=== PATIENT | female | born 1995 | race Caucasian/White ===

== ENCOUNTER 2020-05-07 09:11 | Emergency (ER) | payer MEDICAID, SELFPAY ==
[2020-05-07 09:12] VITALS: BP 125/94; PULSE 83; RESP 16; TEMP 36.2; O2SAT 100; BMI 27.4
--- NOTE | 2020-05-07 09:32 | US_ITS ---
STUDY: FIRST TRIMESTER OBSTETRICAL ULTRASOUND REASON FOR EXAM: Female, 25 years old Threatened miscarriage -- HCG 31 BLEEDING LMP: 03/30/2020. TECHNIQUE: Transvaginal TECHNICAL QUALITY: Adequate. PRIOR ULTRASOUND: None. FINDINGS: There is no demonstrated intrauterine gestational sac. There is no demonstrated yolk sac. The placenta is non-visualized. There is no demonstrated embryo ( pole). The estimated gestation age (EGA) by LMP is 5 weeks, 3 days. The estimated date of delivery (DYLON) by LMP is 01/04/2021. The uterus measures 7.6 cm x 4.4 cm x 3.8 cm the endometrium is thickened and measures 15.2 mm.. There is no demonstrated uterine fibroid. The cervix is closed. There is evidence of a nabothian cyst. The right ovary measures 3.3 cm x 2.1 cm x 1.9 cm. There is no right ovarian cyst. There is no visualized right adnexal mass or complex lesion. The left ovary measures 3.5 cm x 2.7 cm x 1.6 cm.. There is no left ovarian cyst. There is no visualized left adnexal mass or complex lesion. There is a mild amount of fluid in the cul de sac. US/Transvaginal w/Preg US IMPRESSION: No evidence of intrauterine gestational sac or embryo. The endometrium is thickened measuring 15.2 mm. Free fluid is seen in the pelvis. Follow-up with serial beta hCGs recommended. Electronically Signed: Kaleb Krueger MD at 11:40 EDT , Service support ,
--- NOTE | 2020-05-07 09:34 | ED.VISSUMM ---
- ER Visit Summary Date of Service: 05/07/20 Chief Complaint: Vaginal bleeding and History of Present Illness: The patient is a 25 F who presents with vaginal bleeding that began today. Patient also started having some cramping today. Patient states she had some spotting over the last couple days but today she started having more bleeding and passing clots. Patient also admits to some intermittent lower abdominal cramping that last approximate 1 to 2 minutes. Patient describes it as stabbing. Patient states it is over the suprapubic area. Patient states nothing makes it better or worse. Patient does admit to some urinary frequency but states she has been drinking lots of water. Patient denies any dysuria. Patient states her last menstrual period was 03/30/2020. Patient states she has taken multiple home tests which have been positive. Patient has not seen her primary care physician or [facility] [employer] for this . Patient is 2 para 0 with 1 elective . Physical Examination: Vital signs are stable. Patient is afebrile. Patient is in no acute distress. Oral mucosa is pink and moist. Neck is supple. Trachea is midline. There is no JVD. Heart was regular rate and rhythm. Lungs are clear and equal bilaterally. Abdomen is soft. Bowel sounds are normal. There is some suprapubic tenderness. There is no rebound or guarding noted. Extremities are intact. There is no calf tenderness or edema. Cranial nerves II through XII are intact. There are no focal motor or sensory deficits. Test Results: BC and basic metabolic profile were obtained and were within normal limits. Urinalysis shows occult blood of 250. There is no evidence of urinary tract infection. Quantitative hCG was low at 31. Pelvic ultrasound was obtained. There is no evidence of intrauterine gestational sac or embryo. The endometrium is thickened. There are no adnexal masses or complex lesions noted. There are no ovarian cysts noted. This was interpreted by the radiologist and reviewed by myself. Emergency Department Course and Treatment: Patient was advised of her findings. Patient was instructed to follow-up with her primary care physician in 3 to 5 days. Patient understood and was agreeable with the plan. All questions were answered. Disposition: Discharge home Impression: 1. Spontaneous This note was generated with Mark43ation software. It may contain incorrect words, spelling, and punctuation that were not noted in review of the chart prior to signing ED Disposition - Plan for ED Patient: Disposition: Home or Assisted Living Diagnosis: Spontaneous Instructions: ED MISCARRIAGE Completed Referrals: NOT,DEFINED [NON-STAFF] - 3-5 Days
[2020-05-07 09:55] LABS: Absolute Lymphocyte Count 1.22 X10^3/uL (0.83-4.51); Absolute Neutrophil Count 7.2 X10^3/uL (2.0-7.7); Basophil# 0.04 X10^3/uL; Basophil% 0.4 % (0-1); Eosinophil# 0.12 X10^3/uL; Eosinophils% 1.3 % (0-5); Hematocrit 38.6 % (37-47); Hemoglobin 12.8 g/dL (12.0-15.0); Lymphocyte # 1.22 X10^3/ul (4.0); Lymphocyte % 13.5 % (19-41); Mean Corp Hgb Conc 33.2 g/dL (32-36); Mean Corpuscular Hgb 30.8 pg (27.0-32.0); Mean Corpuscular Volume 92.8 fL (81-99); Mean Platelet Vol. 9.9 fl (6.2-12.0); Monocyte# 0.48 X10^3/uL; Monocyte% 5.3 % (0-10); NRBC Flagged by Analyzer 0 % (0-5); Neutrophil # 7.16 X10^3/uL (2.7-7.7); Neutrophil % 79.1 % (47-70); Platelet Count 316 K/mm3 (150-450); RBC Distribution Width CV 12.2 % (11.6-14.6); RBC Distribution Width SD 42.1 fl (35.1-43.9); Red Blood Count 4.16 M/mm3 (4.2-5.4); White Blood Count 9.1 K/mm3 (4.4-11.0)
[2020-05-07 09:56] LABS: Bacteria 0 SEEN /hpf (None Seen); Mucous, Urine 0 SEEN /hpf (<or=2+); Squamous Epithelial Cells - UA 0 SEEN /hpf (5-10); White Blood Cells 0 SEEN /hpf (0-5)
[2020-05-07 09:58] LABS: Color, Urine Yellow (Yellow); Glucose, Dipstick Normal (Normal); Ketone-Dipstick Negative (Negative); Leukocyte Esterase-Dipstick 25 /ul (Negative); Nitrite-Dipstick Negative (Negative); Occult Blood-Urine 250 /ul (Negative); Protein-Dipstick Negative (Negative); Urine Bilirubin Dipstick Negative (Negative); Urine Clarity Clear (Clear); Urine Urobilinogen Normal (Normal)
[2020-05-07 10:04] LABS: Transitional Epithelial - Ur 5-10 SEEN /hpf (0-5)
[2020-05-07 10:05] LABS: Red Blood Cells-Urine > 100 SEEN /hpf (0-5)
[2020-05-07 10:23] LABS: Anion Gap 5 (5-15); BUN 9 mg/dL (7-18); BUN/Creat Ratio 11.7 RATIO (10-20); Calcium,Total 9.2 mg/dL (8.5-10.1); Chloride 108 mmol/L (98-107); Creatinine, Serum 0.77 mg/dL (0.55-1.02); EST Glomerular Filtration Rate 96 mL/min (>60); Est Glom Filt Rate - Afr Amer 116 mL/min (>60); Estimated Creatinine Clearance 94.77 ml/min; Glucose 105 mg/dL (74-106); Potassium 3.8 mmol/L (3.5-5.1); Sodium Level 140 mmol/L (136-145)
[2020-05-07 10:27] LABS: hCG Titer Quant., Serum 31 mIU/mL (1-3)
--- NOTE | 2020-05-07 12:02 | CM.ED ---
Social Work Consult: No PCP Referral Source: Self referral due to noting No PCP for patient. Met with patient in room. Introduced self and social contact worker role. Patient agreeable to speak with this social contact worker. Patient reports to have just found out I had a miscarriage. Active support and listening provided. Patient with pleasant and engaged affect. Patient reports to have support from the community/family/friends. Patient reports no concerns on returning to the community. This social contact worker broached topic of No PCP for patient, patient reports to be aware of resources and declines this social contact worker providing patient with list of PCP's or setting up appointment for patient. Patient reports to also be aware of OBGYNS in the area that accept patient insurance. Support provided. Fransisco Davila MSW, AGUSTIN
[2020-05-07 12:17] VITALS: BP 123/77; PULSE 82; RESP 16; O2SAT 99
== END 2020-05-07 12:18 | disposition home or self-care (01) ==
PROVIDERS: Emergency Provider Emergency Medicine
DX: O03.9 Complete or unspecified spontaneous abortion without complication (principal)
CPT/HCPCS: 76817; 80048; 81001; 84702; 85025; 99283; A4216

== ENCOUNTER 2020-11-01 14:52 | Emergency (ER) | payer MEDICAID, SELFPAY ==
[2020-11-01 14:52] VITALS: BP 112/96; PULSE 94; RESP 16; TEMP 36.6; O2SAT 100; BMI 26.9
--- NOTE | 2020-11-01 16:03 | US_ITS ---
HISTORY: bleeding EXAMINATION: US OB Transvaginal TECHNIQUE: Transvaginal (for optimal evaluation of the adnexa) pelvic ultrasound was performed. Grayscale, spectral waveform, and color flow Doppler evaluation of the adnexa. COMPARISON: None LMP: 09/20/20 Beta-hC,212 FINDINGS: UTERUS: Normal in size. No focal myometrial lesion. RIGHT OVARY: Normal in size and structure. LEFT OVARY: Normal in size, anechoic cyst measures up to 1.7 cm. FREE FLUID: None. INTRAUTERINE GESTATIONAL SAC(s): Twin. Mean sac diameter A 1.26 cm, corresponding 6 weeks 0 days EGA; mean sac diameter B 1.03 cm corresponding 5 weeks 5 days EGA. TWIN A: YOLK SAC: identified POLE: identified CRL 0.30 cm. ESTIMATED GESTATION AGE: 6 weeks 1 day. HEART MOTION: 97 bpm. PLACENTA: Not visualized due to age. SUBCHORIONIC HEMORRHAGE: None. AMNIOTIC FLUID: Qualitatively normal. TWIN B: YOLK SAC: Identified POLE: Not identified HEART MOTION: Not detected. Placenta not identified due to age. No subchorionic hemorrhage. Amniotic fluid volume qualitatively normal. IMPRESSION: Twin gestations with identification of live IUP in gestational sac A, EGA 6 weeks 1 day with DYLON 06/27/21. No pole identified in gestational sac B. Findings indicate IUP of unknown viability. In the hemodynamically stable patient, short-term sonographic follow-up in combination with serial beta hCG determination is recommended until definitive diagnosis is established. at 1924 Reported and signed by: Nitin Robin MD Electronically Signed: Nitin Robin MD at 19:22 EDT Tel , Service support , HISTORY: bleeding EXAMINATION: US OB Transvaginal TECHNIQUE: Transvaginal (for optimal evaluation of the adnexa) pelvic ultrasound was performed. Grayscale, spectral waveform, and color flow Doppler evaluation of the adnexa. COMPARISON: None LMP: 09/20/20 Beta-hC,212 FINDINGS: UTERUS: Normal in size. No focal myometrial lesion. RIGHT OVARY: Normal in size and structure. LEFT OVARY: Normal in size, anechoic cyst measures up to 1.7 cm. FREE FLUID: None. INTRAUTERINE GESTATIONAL SAC(s): Twin. Mean sac diameter A 1.26 cm, corresponding 6 weeks 0 days EGA; mean sac diameter B 1.03 cm corresponding 5 weeks 5 days EGA. TWIN A: YOLK SAC: identified POLE: identified CRL 0.30 cm. ESTIMATED GESTATION AGE: 6 weeks 1 day. HEART MOTION: 97 bpm. PLACENTA: Not visualized due to age. SUBCHORIONIC HEMORRHAGE: None. AMNIOTIC FLUID: Qualitatively normal. TWIN B: YOLK SAC: Identified POLE: Not identified HEART MOTION: Not detected. Placenta not identified due to age. No subchorionic hemorrhage. Amniotic fluid volume qualitatively normal. US/Transvaginal w/Preg US IMPRESSION: Twin gestations with identification of live IUP in gestational sac A, EGA 6 weeks 1 day with DYLON 06/27/21. No pole identified in gestational sac B. Findings indicate IUP of unknown viability. In the hemodynamically stable patient, short-term sonographic follow-up in combination with serial beta hCG determination is recommended until definitive diagnosis is established. at 1924 Reported and signed by: Nitin Robin MD Electronically Signed: Nitin Robin MD at 19:23 EDT Tel , Service support ,
--- NOTE | 2020-11-01 16:03 | ED.VIS.FEGU ---
HPI HPI - Female History of Present Illness Chief Complaint: Vag Bld, Preg Informant: patient Narrative Narrative: Patient is a G3, P0 female. She had an at 17. She had a miscarriage early on of the this April. Her last menstrual cycle was approximately the first few days in September. She just [facility] a [facility]. They did exam and ultrasound and were suspicious that she may be with twins. Today she started with some very small amount of blood when she wipes. Its not even every time that she wipes. She has no urinary symptoms. She really has no pain. Nothing really makes her better or worse. She was also told with ultrasound recently that she had an ovarian cyst. This would be expected early on in . PFSH PFSH Home Medications [id number] [] 1 tab PO DAILY 11/01/20 [History Last Taken Unknown] Allergy/AdvReac Type Severity Reaction Status Date / Time Sulfa (Sulfonamide Allergy Rash Verified 11/01/20 14:56 Antibiotics) Surgical History Hx of appendectomy Social History Smoking Status: Former smoker ROS ROS ED Constitutional Constitutional ED: Denies fever(s) or subjective ENT ENT ED: Denies rhinorrhea or sore throat Cardiovascular Cardiovascular: Denies chest pain or palpitations Respiratory/Chest Respiratory/Chest: Denies dyspnea Gastrointestinal Gastrointestinal: Denies abdominal pain, constipation, diarrhea, melena, nausea or vomiting Genitourinary Genitourinary ED: Reports other Details: Patient really has no urinary symptoms. She does have small amount of blood after wiping but does not think this is in the urine. ; Denies dysuria, hematuria or urinary frequency Musculoskeletal Musculoskeletal: Denies myalgias Integumentary Denies rash Neurologic Neurologic: Denies headache(s), paresthesias or weakness Endocrine Endocrinology: Denies polydipsia or polyuria Hematologic/Lymphatic Hematologic/Lymphatic: Denies easy bleeding or easy bruising EXAM Physical Exam Const Vital Signs: 11/01/20 14:52 Temperature 97.9 F Temperature Source Oral Pulse Rate 94 Respiratory Rate 16 Blood Pressure 112/96 H Blood Pressure Mean 101 Pulse Ox 100 Oxygen Delivery Method Room Air Positive well nourished and well developed General Appearance ED: well developed and NAD HEENT Reports moist mucous membranes Negative for trauma Eyes General Eye ED: Negative for pale conjunctiva Chest Wall inspection of chest normal Resp normal respiratory effort and clear to auscultation bilaterally Cardio regular rate and regular rhythm GI normal to inspection, nondistended, normoactive bowel sounds, soft to palpation and non-tender GI Narrative: No tenderness at all to palpation of abdomen. no CVA tenderness Narrative: No CVA tenderness on either side. Back/Spine no CVA tenderness Extremity normal to inspection General Extremety ED: Negative for edema General Extremity: Negative for edema Neuro oriented x3 Sensorium / Orientation: alert Psych mental status grossly normal Skin no rashes or lesions noted MDM MDM MDM Narrative Medical decision making narrative: We discussed options of work-up. I have a single image from an ultrasound 2 days ago. This does appear to be potential for twin intrauterine gestation. However I would like to have a formal ultrasound. Patient did agree to this. She did just have an exam 2 days ago. We will also check urine. I will check her quantitative hCG for following. Her diaphoretic we will also check ABO Rh. I originally ordered the ABO Rh. Then I found that she is O+ in the computer so this was canceled. Quantitative hCG is 14,212. White count is minimally elevated consistent with mild leukocytosis of . Hemoglobin is stable. Urine shows no sign of acute infection. There are some leukocyte Estrace but 0-5 white cells and no symptoms of UTI. Patient is rechecked. She is comfortable. Her ultrasound showed twin gestational sacs but only one pole. This was explained to the patient. She states she would just like to follow-up with her OB physician. She is making an on appointment hopefully for this week. We discussed reasons to return that would include worsening bleeding, lightheadedness, development of pain or other concerns. At this point, there is no indication of ectopic. Lab Data Attestation: I reviewed the patient's lab results. Labs: Laboratory Results - last 24 hr 11/01/20 11/01/20 11/01/20 15:25 16:55 16:55 WBC 12.2 H RBC 4.07 L Hgb 12.1 Hct 36.7 L MCV 90.2 MCH 29.7 MCHC 33.0 RDW Std Deviation 39.6 RDW Coeff of Greg 12.0 Plt Count 317 MPV 9.8 Immature Gran % (Auto) 0.400 Neut % (Auto) 80.1 H Lymph % (Auto) 13.1 L Sharkey % (Auto) 5.1 Eos % (Auto) 1.1 Baso % (Auto) 0.2 Absolute Neuts (auto) 9.8 H Absolute Lymphs (auto) 1.60 Nucleated RBC % 0 HCG, Quant 17707 H Urine Color Yellow Urine Clarity Clear Urine pH 7.0 Ur Specific [place] 1.010 Urine Protein Negative Urine Glucose (UA) Normal Urine Ketones Negative Urine Occult Blood 150 H Urine Nitrite Negative Urine Bilirubin Negative Urine Urobilinogen Normal Ur Leukocyte Esterase 100 H Urine RBC 0 SEEN Urine WBC 0-5 SEEN Ur Squamous Epith Cells 0-5 SEEN Urine Bacteria RARE Urine Mucus 0 SEEN Radiography Diagnostic Testing: Radiology Impression Obstetrics Ultrasound 11/01/20 16:03 IMPRESSION: Twin gestations with identification of live IUP in gestational sac A, EGA 6 weeks 1 day with DYLON 06/27/21. No pole identified in gestational sac B. Findings indicate IUP of unknown viability. In the hemodynamically stable patient, short-term sonographic follow-up in combination with serial beta hCG determination is recommended until definitive diagnosis is established. at 1924 Reported and signed by: Nitin Robin MD Electronically Signed: Nitin Robin MD at 19:23 EDT Tel , Service support , Discharge Plan Triage Chief Complaint: Vag Bld, Preg ED Provider: Jose Padilla Dx/Rx/DC Orders Clinical Impression: First trimester bleeding, Twin gestation in first trimester Instructions: ED Possible Miscarriage ... Prescriptions: No Action 1 mg Tablet 1 tab PO DAILY RF: 0 Primary Care Provider: Care Physician,No Primary Referrals: Care Physician,No Primary [Primary Care Provider] - Activity Restrictions/Additional Instructions: Follow-up with your OB physician as planned. Disposition Disposition: Home, Self Care
[2020-11-01 16:51] LABS: Mucous, Urine 0 SEEN /hpf (<or=2+); Red Blood Cells-Urine 0 SEEN /hpf (0-5)
[2020-11-01 16:55] LABS: Color, Urine Yellow (Yellow); Glucose, Dipstick Normal (Normal); Ketone-Dipstick Negative (Negative); Leukocyte Esterase-Dipstick 100 /ul (Negative); Nitrite-Dipstick Negative (Negative); Occult Blood-Urine 150 /ul (Negative); Protein-Dipstick Negative (Negative); Urine Bilirubin Dipstick Negative (Negative); Urine Clarity Clear (Clear); Urine Urobilinogen Normal (Normal)
[2020-11-01 17:10] LABS: Absolute Neutrophil Count 9.8 X10^3/uL (2.0-7.7); Basophil# 0.03 X10^3/uL; Basophil% 0.2 % (0-1); Eosinophil# 0.14 X10^3/uL; Eosinophils% 1.1 % (0-5); Hematocrit 36.7 % (37-47); Hemoglobin 12.1 g/dL (12.0-15.0); Lymphocyte % 13.1 % (19-41); Mean Corpuscular Hgb 29.7 pg (27.0-32.0); Mean Corpuscular Volume 90.2 fL (81-99); Mean Platelet Vol. 9.8 fl (6.2-12.0); Monocyte# 0.62 X10^3/uL; Monocyte% 5.1 % (0-10); NRBC Flagged by Analyzer 0 % (0-5); Neutrophil # 9.76 X10^3/uL (2.7-7.7); Neutrophil % 80.1 % (47-70); Platelet Count 317 K/mm3 (150-450); RBC Distribution Width SD 39.6 fl (35.1-43.9); Red Blood Count 4.07 M/mm3 (4.2-5.4); White Blood Count 12.2 K/mm3 (4.4-11.0)
[2020-11-01 17:17] LABS: Bacteria RARE /hpf (None Seen); Squamous Epithelial Cells - UA 0-5 SEEN /hpf (5-10); White Blood Cells 0-5 SEEN /hpf (0-5)
[2020-11-01 17:49] LABS: hCG Titer Quant., Serum 14212 mIU/mL (1-3)
[2020-11-01 20:18] VITALS: BP 108/68; PULSE 80; RESP 12; O2SAT 95
== END 2020-11-01 20:18 | disposition home or self-care (01) ==
PROVIDERS: Emergency Provider Emergency Medicine
DX: O20.9 Hemorrhage in early pregnancy, unspecified (principal); O30.001 Twin pregnancy, unspecified number of placenta and unspecified number of amniotic sacs, first trimester; Z87.891 Personal history of nicotine dependence; Z3A.01 Less than 8 weeks gestation of pregnancy
CPT/HCPCS: 76817; 81001; 84702; 85025; 99282

== ENCOUNTER 2020-11-19 18:43 | Emergency (ER) | payer MEDICAID, SELFPAY ==
[2020-11-19 18:44] VITALS: BP 107/70; PULSE 103; RESP 16; TEMP 36.7; O2SAT 100; BMI 28.0
--- NOTE | 2020-11-19 19:55 | US_ITS ---
STUDY: FIRST TRIMESTER OBSTETRICAL ULTRASOUND REASON FOR EXAM: Female, 25 years old. Vaginal bleeding. TECHNIQUE: Transvaginal US was obtained to better visualized the ovaries. TECHNICAL QUALITY: Adequate. PRIOR ULTRASOUND: 11.01.20 FINDINGS: There are two demonstrated intrauterine gestational sacs. The amniotic membrane cannot be visualized. The estimated gestation age (EGA) by LMP is 8 weeks, 6 days. The estimated date of delivery (DYLON) by LMP is 5... BABY A The mean sac diameter (MSD) measure 38mm, indicating an estimated gestational age (EGA) of 9 weeks, 1 days. There is a visualized yolk sac. The yolk sac measures 4.2 mm. There is visualization of an embryo. The crown-rump length (CRL) measures 20mm, indicating an estimated gestational age (EGA) of 8 weeks, 2 days. The estimated gestation age (EGA) by US is 8 weeks, 5 days. The estimated date of delivery (DYLON) by US is 5.09.10. There is demonstrated cardiac activity with a heart rate 166 bpm. BABY B The mean sac diameter (MSD) measure 29mm, indicating an estimated gestational age (EGA) of 8 weeks, 0 days. There is a visualized yolk sac. The yolk sac measures 3.6mm. There is visualization of an embryo. The crown-rump length (CRL) measures 19mm, indicating an estimated gestational age (EGA) of 8 weeks, 2 days. The estimated gestation age (EGA) by US is 8 weeks, 1 days. The estimated date of delivery (DYLON) by US is 5... There is demonstrated cardiac activity with a heart rate 174 bpm. US/Transvaginal w/Preg US IMPRESSION: Normal intrauterine first trimester FETUS A:There is demonstrated cardiac activity with a heart rate 166 bpm. The estimated gestation age (EGA) by US is 8 weeks, 5 days. The estimated date of delivery (DYLON) by US is 5..22. FETUS B: There is demonstrated cardiac activity with a heart rate 174 bpm. The estimated gestation age (EGA) by US is 8 weeks, 1 days. The estimated date of delivery (DYLON) by US is 5.11.22. The estimated gestation age (EGA) by LMP is 8 weeks, 6 days. The estimated date of delivery (DYLON) by LMP is 5.6.22. Electronically Signed: Homer Amaro MD at 21:35 EDT , Service support ,
--- NOTE | 2020-11-19 19:57 | EDS_ITS ---
HPI HPI - Female History of Present Illness Chief Complaint: Vag Bld, Preg Informant: patient Narrative Narrative: Presents for evaluation recurrent vaginal bleeding small clots a day after lifting cardiac. Denies trauma. G2, P0 8 weeks 5-day twin gestational diagnosed 18 days ago by ultrasound when she came for vaginal bleeding. States symptoms the bleeding subsided then. Recurred today. She has an appointment with OB tomorrow. She has been taking vitamins. No urinary symptoms. Denies alcohol tobacco or illicit drug use. States there was some cramping with bleeding. Records notes she is O+ blood type. Prior similar symptoms: Yes PFSH PFSH Home Medications [id number] [] 1 tab PO DAILY 11/01/20 [History Last Taken Unknown] Allergy/AdvReac Type Severity Reaction Status Date / Time Sulfa (Sulfonamide Allergy Rash Verified 11/19/20 18:47 Antibiotics) Surgical History Hx of appendectomy Social History Smoking Status: Former smoker ROS ROS ED Constitutional Constitutional ED: Denies chills, fever(s) or sweats Eyes Eyes: Denies change in vision ENT ENT ED: Denies dysphagia or sore throat Cardiovascular Cardiovascular: Denies chest pain, leg edema, palpitations or racing heartbeat Respiratory/Chest Respiratory/Chest: Denies cough, dyspnea or dyspnea on exertion Gastrointestinal Gastrointestinal: Denies abdominal pain, diarrhea, nausea or vomiting Genitourinary Genitourinary ED: Reports other Details: Vaginal bleeding ; Denies dysuria, hematuria or urinary frequency Musculoskeletal Musculoskeletal: Denies back pain, extremity pain or neck pain Integumentary Denies rash or wounds Neurologic Neurologic: Denies headache(s), paresthesias or weakness EXAM Physical Exam Const Vital Signs: 11/19/20 18:44 Temperature 98.1 F Temperature Source Temporal Pulse Rate 103 H Respiratory Rate 16 Blood Pressure 107/70 Blood Pressure Mean 82 Pulse Ox 100 Oxygen Delivery Method Room Air Positive well nourished and well developed General Appearance ED: well developed and NAD HEENT Reports moist mucous membranes normocephalic and atraumatic Eyes PERRL, EOMs intact bilaterally and conjunctivae normal General Eye ED: Yes normal appearance of both eyes Neck no lymphadenopathy and supple General: Negative for tenderness Chest Wall Chest: Negative for tenderness Resp normal respiratory effort and normal air movement Effort and Inspection: symmetric chest movement; Negative for respiratory distress Cardio regular rate, regular rhythm and no murmurs Peripheral Pulses: pulses 2+ throughout GI normal to inspection, nondistended, normoactive bowel sounds and non-tender Palpation: Negative for guarding or rebound tenderness present Back/Spine no CVA tenderness and no thoracic nor lumbar tenderness Extremity normal to inspection General Extremety ED: Negative for edema or tenderness General Extremity: Negative for edema Neuro oriented x3 and no sensory deficits noted Sensorium / Orientation: awake and alert Skin no rashes or lesions noted and no wounds MDM MDM MDM Narrative Medical decision making narrative: hCG quant 92,000, urine noted slight blood likely from her vaginal bleeding. No infection. Ultrasound positive for twin gestation of pregnancies with heart tones. Patient O+ from records. Discussed threatened miscarriage with the patient for evaluation. She will keep her OB appointment this coming Monday. All questions answered. Lab Data Attestation: I reviewed the patient's lab results. Labs: Laboratory Results - last 24 hr 11/19/20 11/19/20 19:30 20:22 HCG, Quant 35780 H Urine Color Yellow Urine Clarity Sl. Cloudy Urine pH 6.0 Ur Specific [place] 1.020 Urine Protein Negative Urine Glucose (UA) Normal Urine Ketones Negative Urine Occult Blood 150 H Urine Nitrite Negative Urine Bilirubin Negative Urine Urobilinogen Normal Ur Leukocyte Esterase Negative Urine RBC 10-25 SEEN Urine WBC 0 SEEN Ur Squamous Epith Cells 0-5 SEEN Urine Bacteria 0 SEEN Urine Mucus 0 SEEN Radiography Diagnostic Testing: Radiology Impression Obstetrics Ultrasound 11/19/20 19:55 IMPRESSION: Normal intrauterine first trimester FETUS A:There is demonstrated cardiac activity with a heart rate 166 bpm. The estimated gestation age (EGA) by US is 8 weeks, 5 days. The estimated date of delivery (DYLON) by US is 5.7.22. FETUS B: There is demonstrated cardiac activity with a heart rate 174 bpm. The estimated gestation age (EGA) by US is 8 weeks, 1 days. The estimated date of delivery (DYLON) by US is 5.11.22. The estimated gestation age (EGA) by LMP is 8 weeks, 6 days. The estimated date of delivery (DYLON) by LMP is 5.6.22. Electronically Signed: Homer Amaro MD at 21:35 EDT , Service support , Discharge Plan Triage Chief Complaint: Vag Bld, Preg ED Provider: Arben Jackson Dx/Rx/DC Orders Clinical Impression: Threatened miscarriage in early , Twin Instructions: ED Possible Miscarriage ... Prescriptions: No Action 1 mg Tablet 1 tab PO DAILY RF: 0 Primary Care Provider: Ann Petersen Referrals: Ann Petersen MD [Primary Care Provider] - 3-5 Days Disposition Disposition: Home, Self Care Discharge Date/Time: 11/19/20 22:08
[2020-11-19 21:10] LABS: Bacteria 0 SEEN /hpf (None Seen); Mucous, Urine 0 SEEN /hpf (<or=2+); White Blood Cells 0 SEEN /hpf (0-5)
[2020-11-19 21:23] LABS: Color, Urine Yellow (Yellow); Glucose, Dipstick Normal (Normal); Ketone-Dipstick Negative (Negative); Leukocyte Esterase-Dipstick Negative /ul (Negative); Nitrite-Dipstick Negative (Negative); Occult Blood-Urine 150 /ul (Negative); Protein-Dipstick Negative (Negative); Urine Bilirubin Dipstick Negative (Negative); Urine Clarity Sl. Cloudy (Clear); Urine Urobilinogen Normal (Normal)
[2020-11-19 21:50] LABS: Red Blood Cells-Urine 10-25 SEEN /hpf (0-5); Squamous Epithelial Cells - UA 0-5 SEEN /hpf (5-10)
== END 2020-11-19 22:08 | disposition home or self-care (01) ==
PROVIDERS: Emergency Provider Emergency Medicine; PCP Obstetrics & Gynecology
DX: O20.0 Threatened abortion (principal); O30.001 Twin pregnancy, unspecified number of placenta and unspecified number of amniotic sacs, first trimester; Z3A.08 8 weeks gestation of pregnancy; Z87.891 Personal history of nicotine dependence
CPT/HCPCS: 76817; 81001; 84702; 99282

== ENCOUNTER 2021-04-14 08:46 | Emergency (ER) | payer MEDICAID, SELFPAY ==
[2021-04-14 08:49] VITALS: BP 116/97; PULSE 116; RESP 20; TEMP 36.7; O2SAT 97; BMI 32.2
--- NOTE | 2021-04-14 09:03 | EX.ED.DYSGE1 ---
HPI History of Present Illness Chief Complaint: Nausea/Vomiting/Diarrhea Informant: patient Narrative Narrative: 26-year-old female presenting to the emergency department chief complaint of vomiting diarrhea. She states that yesterday she had a quesadilla burger from [employer] for lunch and her friend ate the same thing. She states that when she got home she ate the other half of the burger and developed some heartburn. Later during the night she developed vomiting every hour. She is also experienced 1 episode of diarrhea. She notes cramping in her upper abdomen prior to vomiting. She is currently with twins G3, P0 Ab2, who sees Dr. Mccoy. She states her has done very well so far. She denies any recent antibiotics. She does note that her significant other has had a fever for the past 4 days and feels poorly but has not had vomiting or diarrhea PFSH PFSH Home Medications [id number] [] 1 tab PO DAILY 11/01/20 [History Last Taken Unknown] ondansetron 4 mg PO Q6H PRN PRN #15 tab 04/14/21 [Rx Last Taken Unknown] promethazine 25 mg PO Q6H PRN PRN #15 tablet 04/14/21 [Rx Last Taken Unknown] Allergy/AdvReac Type Severity Reaction Status Date / Time Sulfa (Sulfonamide Allergy Rash Verified 11/19/20 18:47 Antibiotics) Surgical History Hx of appendectomy Social History (Updated 04/14/21 @ 09:[address] Elliott Putnam DO) current gender identity: female Smoking Status: Never smoker ROS ROS ED Constitutional Constitutional ED: Denies chills, fever(s) or weight loss Eyes Eyes: Denies change in vision or diplopia ENT ENT ED: Denies ear pain, rhinorrhea or sore throat Cardiovascular Cardiovascular: Denies chest pain, orthopnea, palpitations or racing heartbeat Respiratory/Chest Respiratory/Chest: Denies cough, dyspnea or orthopnea Gastrointestinal Gastrointestinal: Reports diarrhea, nausea and vomiting; Denies abdominal pain Genitourinary Genitourinary ED: Denies dysuria, hematuria or urinary frequency Musculoskeletal Musculoskeletal: Denies arthralgias or myalgias Integumentary Denies abscess or rash Neurologic Neurologic: Denies headache(s) or weakness Psychiatric Psychiatric: Denies anxiety, depression, suicidal ideation or suicidal thoughts Endocrine Endocrinology: Denies polydipsia, polyphagia or polyuria Allergic/Immunologic Allergic/Immunologic ED: Denies mouth swelling, tongue swelling or urticaria EXAM Physical Exam Const Vital Signs: 04/14/21 08:49 04/14/21 10:21 Temperature 98.1 F Temperature Source Temporal Pulse Rate 116 H 105 H Respiratory Rate 20 H 16 Blood Pressure 116/97 H 123/81 H Blood Pressure Mean 103 95 Pulse Ox 97 95 Oxygen Delivery Method Room Air Room Air Positive well nourished and well developed General Appearance ED: well developed HEENT Reports normocephalic, head/scalp atraumatic, TM's clear and moist mucous membranes Negative for trauma Tympanic Membrane ED: Yes TM's clear Eyes PERRL and EOMs intact bilaterally Neck no lymphadenopathy, supple and no JVD Resp normal respiratory effort and clear to auscultation bilaterally Cardio regular rate and no murmurs Rate: tachycardic GI non-tender GI Narrative: Gravid uterus Auscultation: normoactive bowel sounds Palpation: soft Back/Spine no CVA tenderness and normal ROM Extremity normal to inspection General Extremety ED: Negative for edema General Extremity: Negative for edema Neuro oriented x3 and CN's II-XII intact bilaterally Sensorium / Orientation: alert Motor Exam: strength 5/5 throughout Psych mental status grossly normal Mood & Affect: Negative for depressed or tearful Skin no rashes or lesions noted and no wounds MDM MDM MDM Narrative Medical decision making narrative: Urine ketones are at 50. There is 5-10 white cells 0-5 squamous cells 1+ bacteria. Negative nitrates. This be sent for culture and the patient is currently asymptomatic. White count noted to be 13.9 hemoglobin 10.7 platelet count 258. CMP is essentially negative. Patient received IV fluids and Zofran. She is tolerating blanquita lokesh. Patient will be discharged home with a prescription for Zofran as well as Phenergan. I did do a bedside ultrasound to check heart tones. Baby A had a heart rate of 150 and baby B at 143. Lab Data Attestation: I reviewed the patient's lab results. Labs: Laboratory Results - last 24 hr 04/14/21 04/14/21 04/14/21 09:10 09:10 09:10 WBC 13.9 H RBC 3.77 L Hgb 10.7 L Hct 32.3 L MCV 85.7 MCH 28.4 MCHC 33.1 RDW Std Deviation 38.3 RDW Coeff of Greg 12.1 Plt Count 258 MPV 10.7 Immature Gran % (Auto) 1.700 H Neut % (Auto) 91.5 H Lymph % (Auto) 2.4 L [place] % (Auto) 3.7 Eos % (Auto) 0.3 Baso % (Auto) 0.4 Absolute Neuts (auto) 12.7 H Absolute Lymphs (auto) 0.33 L Nucleated RBC % 0 Differential Comment SCANNED Sodium 139 Potassium 4.1 Chloride 108 H Carbon Dioxide 24.0 Anion Gap 7 BUN 11 Creatinine 0.62 Estim Creat Clear Calc 116.65 Est GFR (MDRD) Af Amer 147 Est GFR (MDRD) Non-Af 122 BUN/Creatinine Ratio 17.7 Glucose 108 H Calcium 8.4 L Total Bilirubin 0.30 AST 12 L ALT 15 Alkaline Phosphatase 109 Total Protein 6.5 Albumin 2.8 L Globulin 3.7 Albumin/Globulin Ratio 0.8 L Urine Color Yellow Urine Clarity Cloudy Urine pH 8.0 Ur Specific [place] 1.015 Urine Protein 30 H Urine Glucose (UA) Normal Urine Ketones 50 H Urine Occult Blood Negative Urine Nitrite Negative Urine Bilirubin 1 H Urine Urobilinogen Normal Ur Leukocyte Esterase 100 H Urine RBC 0 SEEN Urine WBC 5-10 SEEN Ur Squamous Epith Cells 0-5 SEEN Urine Bacteria 1+ Urine Mucus RARE Discharge Plan Triage Chief Complaint: Nausea/Vomiting/Diarrhea ED Provider: Elliott Putnam Dx/Rx/DC Orders Clinical Impression: Gastroenteritis, Third trimester Instructions: ED Vomiting and Diarrhea ... Prescriptions: New promethazine [promethazine] 25 MG tablet 25 mg PO Q6H PRN PRN (Reason: Nausea) Qty: 15 RF: 0 ondansetron [ondansetron] 4 MG tablet 4 mg PO Q6H PRN PRN (Reason: Nausea) Qty: 15 RF: 0 No Action 1 mg Tablet 1 tab PO DAILY RF: 0 Primary Care Provider: Care Physician,No Primary Referrals: Care Physician,No Primary [Primary Care Provider] - Activity Restrictions/Additional Instructions: Follow-up with your EXPERIMENTAL [employer]OCKET[employer] MECHANIC as scheduled return if worsening or concerns Disposition Disposition: Home, Self Care
[2021-04-14] MEDS: 0.9% Normal Saline 1,000 ML 1000 ML IV (09:13)
[2021-04-14] MEDS: Ondansetron 4 MG/2 ML Vial IV ×2 (09:14→10:36)
[2021-04-14 09:16] LABS: Red Blood Cells-Urine 0 SEEN /hpf (0-5)
[2021-04-14 09:17] LABS: Color, Urine Yellow (Yellow); Glucose, Dipstick Normal (Normal); Ketone-Dipstick 50 mg/dl (Negative); Leukocyte Esterase-Dipstick 100 /ul (Negative); Nitrite-Dipstick Negative (Negative); Occult Blood-Urine Negative /ul (Negative); Protein-Dipstick 30 mg/dl (Negative); Specific Gravity, Urine 1.015 (1.002-1.030); Urine Clarity Cloudy (Clear); Urine Urobilinogen Normal (Normal)
[2021-04-14 09:18] LABS: Absolute Lymphocyte Count 0.33 X10^3/uL (0.83-4.51); Absolute Neutrophil Count 12.7 X10^3/uL (2.0-7.7); Basophil# 0.05 X10^3/uL; Basophil% 0.4 % (0-1); Eosinophil# 0.04 X10^3/uL; Eosinophils% 0.3 % (0-5); Hematocrit 32.3 % (37-47); Hemoglobin 10.7 g/dL (12.0-15.0); Lymphocyte # 0.33 X10^3/ul (0.83-4.51); Lymphocyte % 2.4 % (19-41); Mean Corp Hgb Conc 33.1 g/dL (32-36); Mean Corpuscular Hgb 28.4 pg (27.0-32.0); Mean Corpuscular Volume 85.7 fL (81-99); Mean Platelet Vol. 10.7 fl (6.2-12.0); Monocyte# 0.51 X10^3/uL; Monocyte% 3.7 % (0-10); NRBC Flagged by Analyzer 0 % (0-5); Neutrophil # 12.74 X10^3/uL (2.7-7.7); Neutrophil % 91.5 % (47-70); POSITIVE DIFFERENTIAL YES; Platelet Count 258 K/mm3 (150-450); RBC Distribution Width CV 12.1 % (11.6-14.6); RBC Distribution Width SD 38.3 fl (35.1-43.9); Red Blood Count 3.77 M/mm3 (4.2-5.4); White Blood Count 13.9 K/mm3 (4.4-11.0)
[2021-04-14 09:19] LABS: Differential Indicated SCAN CRITERIA MET; Urine Bilirubin Dipstick 1 mg/dL (Negative)
[2021-04-14 09:23] LABS: Bacteria 1+ /hpf (None Seen); Squamous Epithelial Cells - UA 0-5 SEEN /hpf (5-10); White Blood Cells 5-10 SEEN /hpf (0-5)
[2021-04-14 09:24] LABS: Mucous, Urine RARE /hpf (<or=2+)
[2021-04-14 09:36] LABS: ALB/GLOB Ratio 0.8 RATIO (0.9-2.4); AST(SGOT) 12 U/L (15-37); Alanine Aminotransfer ALT/SGPT 15 U/L (13-56); Albumin, Serum 2.8 g/dL (3.2-5.0); Alkaline Phosphatase 109 U/L (45-117); Anion Gap 7 (5-15); BUN 11 mg/dL (7-18); BUN/Creat Ratio 17.7 RATIO (10-20); Calcium,Total 8.4 mg/dL (8.5-10.1); Chloride 108 mmol/L (98-107); Creatinine, Serum 0.62 mg/dL (0.55-1.02); EST Glomerular Filtration Rate 122 mL/min (>60); Est Glom Filt Rate - Afr Amer 147 mL/min (>60); Estimated Creatinine Clearance 116.65 ml/min; Globulin 3.7 g/dL (2.2-4.2); Glucose 108 mg/dL (74-106); Potassium 4.1 mmol/L (3.5-5.1); Protein, Total 6.5 g/dL (6.4-8.2); Sodium Level 139 mmol/L (136-145)
[2021-04-14 10:05] LABS: Differential Comment SCANNED
[2021-04-14 10:21] VITALS: BP 123/81; PULSE 105; RESP 16; O2SAT 95
== END 2021-04-14 12:03 | disposition home or self-care (01) ==
PROVIDERS: Emergency Provider Emergency Medicine; Visit Provider Emergency Medicine
DX: O99.613 Diseases of the digestive system complicating pregnancy, third trimester (principal); K52.9 Noninfective gastroenteritis and colitis, unspecified; R12 Heartburn; O26.893 Other specified pregnancy related conditions, third trimester; O99.891 Other specified diseases and conditions complicating pregnancy; O30.003 Twin pregnancy, unspecified number of placenta and unspecified number of amniotic sacs, third trimester; Z3A.00 Weeks of gestation of pregnancy not specified
CPT/HCPCS: 80053; 81001; 85025; 87086; 87088; 87426; 99284; J7030; A4216; J2405

== ENCOUNTER 2021-05-24 12:35 | Inpatient (IN) | payer MEDICAID, SELFPAY ==
[2021-05-24] VITALS (18 sets, daily range): BP systolic 105–148; BP diastolic 54–94; PULSE 81–99; RESP 16; TEMP 36.3–36.9; O2SAT 98–100; BMI 34.2
[2021-05-24 10:48] LABS: ROM Internal Control Test YES-OK TO RESULT pt. (Internal QC); ROM Patient Test Negative (Negative)
[2021-05-24 11:34] LABS: Amphetamine Urine VISTA NEGATIVE (<1000 ng/mL); Barbiturate Urine VISTA NEGATIVE (< 200 ng/mL); Benzodiazepine Urine VISTA NEGATIVE (< 200 ng/mL); Cocaine Urine VISTA NEGATIVE (< 300 ng/mL); Ecstacy Urine VISTA NEGATIVE (< 500 ng/mL); Methadone Urine VISTA NEGATIVE (< 300 ng/mL); PCP Urine VISTA NEGATIVE (< 25 ng/mL); THC Urine VISTA POSITIVE (< 50 ng/mL); Vista UDS pH Range 8
[2021-05-24 11:34] LABS: Group B Strep DNA By PCR Negative (Negative); Internal Control PASS; Probe Check PASS; Specimen Processing Control PASS
[2021-05-24] MEDS: Lactated Ringers 1,000 ML 50 ML IV (12:24)
--- NOTE | 2021-05-24 13:13 | PCM.HP.OB ---
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 Baby A vertex and baby B breech. Baby B is larger in size. She is brayan and cervix changed from 4 cm to 5 cm. Plan is for a section and she desires sterilization. Maternal Data Information DYLON Calculator Estimated Delivery Date Method Current WG Current Estimate 06/27/21 LMP (Certain) 35w 1d PFSH PFSH Home Medications [id number] [] 1 tab PO DAILY 11/01/20 [History Last Taken Unknown] ondansetron 4 mg PO Q6H PRN PRN #15 tab 04/14/21 [Rx Last Taken Unknown] promethazine 25 mg PO Q6H PRN PRN #15 tablet 04/14/21 [Rx Last Taken Unknown] Allergy/AdvReac Type Severity Reaction Status Date / Time Sulfa (Sulfonamide Allergy Rash Verified 11/19/20 18:47 Antibiotics) Surgical History Hx of appendectomy Social History Smoking Status: Former smoker History Elective abortions Hx Para 1 Spontaneous abortions Hx # Term Pregnancies Ectopic pregnancies Hx # Pregnancies Multiple births # of living children NST FHR Rate Baby A Baseline: 140 Variability:: Moderate Accelerations:: 15 x 15 Decelerations:: None FHR Category:: Category I FHR Rate Baby B Baseline: 135 Variability:: Moderate Accelerations:: 15 x 15 Decelerations:: None FHR Category:: Category I Vital Signs Vital Signs Vital Signs: 05/24/21 11:37 05/24/21 12:22 Temperature 98.5 F Temperature Source Temporal Pulse Rate 93 81 Blood Pressure 148/94 H 137/81 H BP Systolic 148 137 BP Diastolic 94 81 Weight Weight: 199 lb 8.293 oz Body Mass Index (BMI) 34.2 Physical Exam Const alert and no apparent distress General Appearance: comfortable Resp normal respiratory effort GI soft to palpation and non-tender Labs Labs Labs: Blood Type O POSITIVE Hct 32.3 % (37-47) L Hgb 10.7 g/dL (12.0-15.0) L Obstetrics Chlamydia DNA (SELVIN) Negative (Negative-) Neisseria gonorrhoeae DNA (SELVIN) Negative (Negative-) Group B Strep DNA Negative (Negative) Assessment & Plan (1) 35 weeks gestation of : PLAN: - Discussed r/b/a to vaginal delivery versus section. Patient desires section given presentation of baby B, growth discordance, and desires sterilization. She understands sterilization is permanent and irreversible, and there is a risk of regret. She understands alternative forms of control and she is 100% certain she does not want another in the future - Ancef pre op - Routine pre op care and labs (2) Dichorionic diamniotic twin : (3) Uterine contractions:
[2021-05-24] MEDS: Lactated Ringers 1,000 ML 999 ML IV (13:30)
[2021-05-24] MEDS: Acetaminophen 500 MG Tablet 1000 MG PO ×2 (13:30→19:58)
--- NOTE | 2021-05-24 13:38 | PN_ITS ---
Progress Note At bedside to check pt. Pt is comfortable appearing. Regular ctx's on toco. Cvx /-1. Plan is still for section with bilateral salpingectomy. Discussed risks with ECV of baby B, as well as risks with a breech extraction of baby B if she were to deliver vaginally. She understands babies may need to go to special care nursery, or may need transferred to [place] for further care. Questions answered and she desires to proceed with section and bilateral salpingectomy.
[2021-05-24 14:17] LABS: Hematocrit 31.3 % (37-47); Hemoglobin 10.2 g/dL (12.0-15.0); Mean Corp Hgb Conc 32.6 g/dL (32-36); Mean Corpuscular Hgb 27.3 pg (27.0-32.0); Mean Corpuscular Volume 83.9 fL (81-99); Mean Platelet Vol. 11.8 fl (6.2-12.0); Platelet Count 209 K/mm3 (150-450); RBC Distribution Width CV 16.7 % (11.6-14.6); RBC Distribution Width SD 49.1 fl (35.1-43.9); Red Blood Count 3.73 M/mm3 (4.2-5.4); White Blood Count 10.5 K/mm3 (4.4-11.0)
[2021-05-24 14:26] LABS: Absolute Lymphocyte Count 1.19 X10^3/uL (0.83-4.51); Absolute Neutrophil Count 7.8 X10^3/uL (2.0-7.7); Basophil# 0.04 X10^3/uL; Basophil% 0.4 % (0-1); Eosinophil# 0.18 X10^3/uL; Eosinophils% 1.8 % (0-5); Hematocrit 33.2 % (37-47); Hemoglobin 10.6 g/dL (12.0-15.0); Lymphocyte # 1.19 X10^3/ul (0.83-4.51); Lymphocyte % 11.9 % (19-41); Mean Corp Hgb Conc 31.9 g/dL (32-36); Mean Corpuscular Volume 84.5 fL (81-99); Mean Platelet Vol. 12.6 fl (6.2-12.0); Monocyte# 0.65 X10^3/uL; Monocyte% 6.5 % (0-10); NRBC Flagged by Analyzer 0 % (0-5); Neutrophil # 7.82 X10^3/uL (2.7-7.7); Neutrophil % 78.2 % (47-70); Platelet Count 226 K/mm3 (150-450); RBC Distribution Width CV 16.8 % (11.6-14.6); RBC Distribution Width SD 49.6 fl (35.1-43.9); Red Blood Count 3.93 M/mm3 (4.2-5.4)
[2021-05-24 14:44] LABS: Protein, Urine (Random) 35.6 mg/dL (<11.9); Protein:Creat Ratio 184 mg/g CRE (0-200)
[2021-05-24 14:44] LABS: AST(SGOT) 12 U/L (15-37); Alanine Aminotransfer ALT/SGPT 13 U/L (13-56); EST Glomerular Filtration Rate 156 mL/min (>60); Est Glom Filt Rate - Afr Amer 189 mL/min (>60); Estimated Creatinine Clearance 144.65 ml/min
[2021-05-24] MEDS: Cefazolin 2 GM in 0.9% Normal Saline 100 ML IV (15:25)
--- NOTE | 2021-05-24 15:41 | FALS_PTH ---
PATIENT: PATRICE CUTLER LOC: [facility] U#:[id number] AGE/SX: 26/F ROOM: WP007 RE05/24/[address]: Dr. Stormy Shay DO : 1995 BED: 1 DIS: 05/27/2021 SPEC #: [id number] RECD: 05/24/21 19:48 STATUS: FABIAN REEmmy #: [id number] JAE: 05/24/21 15:[address]: Stormy Shay DEPT: SURGICAL PATHOLOGY RECD BY: Saranya Araiza ENTERED: 05/25/21 08:08 SP TYPE: FALL TUBES OTHR DR: No Primary Care Phys Tissues: Fallopian tube Procedures: Surgery Specimen Level II HEADER OPERATION: Tubal ligation PRE-OP DIAGNOSIS: Sterilization TISSUE SUBMITTED: Fallopian tubes, suture in right tube MICROSCOPIC DIAGNOSIS Right fallopian tube, salpingectomy: Complete cross-section of fallopian tube with no pathologic change. Left fallopian tube, salpingectomy: Complete cross-section of fallopian tube with no pathologic change. AM:pura 05/26/2021 MICROSCOPIC DESCRIPTION Slides are reviewed. GROSS DESCRIPTION Received in fixative is one container labeled with the patient's name and designated bilateral fallopian tubes. The specimen consists of bilateral fallopian tubes including fimbrial ends. The right fallopian tube is identified by a suture. The right fallopian tube measures 6.5 cm in length and 0.7 cm in diameter and the left fallopian tube measures 6 cm in length and 0.7 cm in diameter. Sections reveal unremarkable cut surfaces. Punch Press Setter sections are submitted in two cassettes as follows: 1 - right fallopian tube, 2??left fallopian tube. / SJ:pura 05/25/2021 TC:4 CPT: 25506 x2
--- NOTE | 2021-05-24 16:35 | OP.PCM_ITS ---
Problems Associated Problem List Diagnoses (1) Dichorionic diamniotic twin : (2) 35 weeks gestation of : (3) Uterine contractions: (4) Obesity affecting : Report of Operation Date of Procedure: 05/24/21 Pre-Operative Diagnosis: 35 week gestation, labor, di/di twin gestation, baby B breech presentation, desires permanent sterilization Post-Operative Diagnosis: As above Surgery/Procedure Performed:: PLTCS via pfannenstiel incision Bilateral salpingectomy Description of Surgical Findings:: Baby A in vertex presentation with clear fluid and normal appearing placenta. Apgars of baby A 8, 9. Baby B in gigi breech presentation with clear fluid and normal appearing placenta. Normal uterus and bilateral adnexa. Apgars of baby B 7, 8. Surgeon: Stormy Shay fisher clam: Teodoro Paredes Type of Anesthesia: Spinal Special Medications: None Specimen's removed: Placenta Drains: [place] Estimated Blood Loss (mL): 900 Fluids Replaced: 1000 cc Description of Procedure: Indications: A 26-year-old G1, P0 presented at 35 weeks and 1 day with di-di twin gestation in labor. She was 4 cm dilated and progressed to 5 cm with a bulging bag of water. Baby A was confirmed to be vertex presentation. Baby B was confirmed to be gigi breech presentation on presentation to L&D with a bedside ultrasound. Baby B was estimated to be the larger of the baby's based on an ultrasound 3 weeks ago. Discussed risk and benefits of a vaginal delivery versus a section with the patient. She decided to proceed with a section. She desired permanent sterilization. Discussed risk of regret and that sterilization is permanent and irreversible. Procedure: Patient was taken to the operating room and spinal anesthesia was found be adequate. She was prepped and draped in the dorsal position with leftward tilt. A pfannenstiel skin incision was made using a scalpel and this was carried down to the underlying layer of fascia. The fascia was incised in the midline. The fascia was extended laterally using Morton scissors. The fascia was dissected off of the rectus muscles with a combination of sharp and blunt dissection. The rectus muscles were in the midline. The peritoneum was entered bluntly with good visualization of the bladder. The peritoneal incision was extended bluntly. A low transverse incision was made on the uterus with a scalpel. Membranes of baby A were ruptured for clear fluid. The head of baby A was brought to the hysterotomy in a flexed position and baby A was d elivered through the hysterotomy without any force or delay. The cord was clamped and cut immediately and the infant was handed off to the waiting nursery staff. Baby B was noted to be gigi breech presentation and brought to the hysterotomy, and at this time membranes were ruptured for clear fluid. The baby was delivered in breech presentation easily through the hysterotomy without any force or delay, and the head was flexed during delivery. The cord was clamped and cut immediately and the infant was handed off to waiting nursery staff. Placentas were removed with manual extraction. Uterus was exteriorized. The uterus was cleared of all clot and debris. The hysterotomy was closed with 1-0 Vicryl in a running locked fashion. Several additional [id number] sutures were placed for hemostasis. I then confirmed with the patient that she did desire a bilateral salpingectomy, and she wished to proceed with sterilization. Using [place] the right fallopian tube was elevated and followed out to the fimbriated end. Using the LigaSure device the mesosalpinx was serially clamped, cauterized, and transected until the cornua was reached. At this point the right fallopian tube was clamped, cauterized and transected. The right fallopian tube was sent to pathology for review. The same was performed along the left side so the left fallopian tube was removed, which was also sent to pathology for review. The uterus was placed back in the abdomen. The hysterotomy was hemostatic. Yohan was placed over the hysterotomy. The peritoneum was closed with 3- Vicryl in a running fashion. The rectus muscles were noted to be hemostatic. The fascia was closed with strata fix in a running fashion. Subcutaneous space was irrigated and made hemostatic with the Bovie cautery. 3-0 Vicryl was used to reapproximate the subcutaneous space. 4 Monocryl was used to close the skin in a subcuticular fashion. The dressing was placed. Instrument, sponge, and needle counts were correct. The patient was taken to the recovery in stable condition. The billing and accounting staff assistant Stefan Whitney assisted with the entire procedure: prepping the patient, delivery of infant, and closure. Grafts/Implants Used: None Complications None Admit VTE Documentation VTE Present on Admission: No VTE Mechan Device Prophylaxis: SCD's
[2021-05-24] MEDS: Oxytocin 30 units/NS 500 ml 30 UNITS/500 ML IV.SOLN 167 UNITS IV (16:40)
[2021-05-24] MEDS: Ketorolac 30 MG/ML Syringe IV (17:52)
[2021-05-24 19:50] LABS: Pathology Specimen OB SEE PATHOLOGY REPORT
[2021-05-25 00:50] VITALS: BP 122/74; PULSE 91; RESP 16; TEMP 36.2; O2SAT 98
[2021-05-25] MEDS: Lactated Ringers 1,000 ML 100 ML IV (00:55)
[2021-05-25] MEDS: Ketorolac 30 MG/ML Syringe IV ×3 (00:58→11:42)
[2021-05-25] MEDS: Acetaminophen 500 MG Tablet 1000 MG PO ×4 (00:58→20:21)
[2021-05-25 02:50] VITALS: RESP 16; O2SAT 100
[2021-05-25 04:45] VITALS: BP 109/67; PULSE 89; RESP 16; TEMP 36.6; O2SAT 99
[2021-05-25] MEDS: Enoxaparin 40 MG/0.4 ML Syringe SC (04:54)
[2021-05-25 06:04] LABS: Hematocrit 23.8 % (37-47); Hemoglobin 7.7 g/dL (12.0-15.0); Mean Corp Hgb Conc 32.4 g/dL (32-36); Mean Corpuscular Hgb 27.4 pg (27.0-32.0); Mean Corpuscular Volume 84.7 fL (81-99); Mean Platelet Vol. 11.6 fl (6.2-12.0); Platelet Count 156 K/mm3 (150-450); RBC Distribution Width CV 16.6 % (11.6-14.6); Red Blood Count 2.81 M/mm3 (4.2-5.4); White Blood Count 8.7 K/mm3 (4.4-11.0)
[2021-05-25 06:56] LABS: Bedside Glucose 110 mg/dL (74-106)
[2021-05-25 08:01] VITALS: BP 112/69; PULSE 80; RESP 16; TEMP 36.6; O2SAT 98
--- NOTE | 2021-05-25 08:38 | PN.OBGYN_ITS ---
Subjective Subjective Doing well per patient and nursing staff. Ambulating and taking PO without difficulty. Mata remains in place due to limited output and dark color. Urine output increased. Passing flatus. Pain controlled. , services for assistance. Denies headache, visual changes, chest pain, shortness of breath, leg pain or increased bleeding. Lochia normal. Baby with low temp and bedside warmer for assistance. Objective Data Objective Data Vital Signs: Vital Signs Temp Pulse Resp BP Pulse Ox 97.9 F 80 16 112/69 98 05/25/21 08:01 05/25/21 08:01 05/25/21 08:01 05/25/21 08:01 05/25/21 08:01 Oxygen Delivery Method Room Air Weight: 199 lb 8.293 oz Body Mass Index (BMI) 34.2 Intake & Output: Intake and Output for Last 24 Hours 05/23/21 05/24/21 05/25/21 23:59 23:59 23:59 Intake Total 2244 / 2244 656.67 / 656.67 Output Total 350 / 350 250 / 250 Balance 1894 / 1894 406.67 / 406.67 Lab / Micro Data Result Diagrams: 05/25/21 05:55 05/24/21 14:05 Labs: Laboratory Results - last 24 hr 05/24/21 10:20: Vag Amniotic Fld Detect Negative 05/24/21 10:20: Group B Strep DNA Negative, Specimen Comment Not Reportable 05/24/21 10:45: WBC 10.0, RBC 3.93 L, Hgb 10.6 L, Hct 33.2 L, MCV 84.5, MCH 27.0, MCHC 31.9 L, RDW Std Deviation 49.6 H, RDW Coeff of Greg 16.8 H, Plt Count 226, MPV 12.6 H, Immature Gran % (Auto) 1.200 H, Neut % (Auto) 78.2 H, Lymph % (Auto) 11.9 L, Mcduffie % (Auto) 6.5, Eos % (Auto) 1.8, Baso % (Auto) 0.4, Absolute Neuts (auto) 7.8 H, Absolute Lymphs (auto) 1.19, Nucleated RBC % 0 05/24/21 10:45: Blood Type O POSITIVE, Antibody Screen NEGATIVE 05/24/21 11:05: Urine Opiates Screen NEGATIVE, Urine Methadone Screen NEGATIVE, Ur Barbiturates Screen NEGATIVE, Ur Phencyclidine Scrn NEGATIVE, Ur Amphetamines Screen NEGATIVE, MDMA (Ecstasy) Screen NEGATIVE, U Benzodiazepines Scrn NEGATIVE, Urine Cocaine Screen NEGATIVE, U Cannabinoids Screen POSITIVE H, Ur Drug Screen Comment 05/24/21 14:05: WBC 10.5, RBC 3.73 L, Hgb 10.2 L, Hct 31.3 L, MCV 83.9, MCH 27.3, MCHC 32.6, RDW Std Deviation 49.1 H, RDW Coeff of Greg 16.7 H, Plt Count 209, MPV 11.8 05/24/21 14:05: Creatinine 0.50 L, Estim Creat Clear Calc 144.65, Est GFR (MDRD) Af Amer 189, Est GFR (MDRD) Non-Af 156, Uric Acid 6.0, AST 12 L, ALT 13 05/24/21 14:15: U Random Total Protein 35.6 H, Urine Creatinine 193.00, Prote in/Creatinin Ratio 184 05/25/21 05:55: WBC 8.7, RBC 2.81 L, Hgb 7.7 L, Hct 23.8 L, MCV 84.7, MCH 27.4, MCHC 32.4, RDW Std Deviation 50.0 H, RDW Coeff of Greg 16.6 H, Plt Count 156, MPV 11.6 05/25/21 06:48: POC Glucose 110 H Micro: Microbiology 05/24/21 14:20 Nasal Secretion SARS-CoV-2 Antigen (Rapid) - Final ROS Constitutional Constitutional: Reports systems reviewed and no addt'l complaints, except as documented; Denies headache(s) Eyes Eyes: Denies acute decrease in peripheral vision, blurry vision or change in vision ENT HEENT: Reports systems reviewed and no addt'l complaints, except as documented Cardiovascular Cardiovascular: Denies chest pain or dizziness Respiratory/Chest Respiratory/Chest: Denies cough, dyspnea, dyspnea on exertion, shortness of breath at rest or shortness of breath with exertion Gastrointestinal Gastrointestinal: Denies abdominal pain, diarrhea, nausea or vomiting Genitourinary Genitourinary: Denies abdominal discomfort Musculoskeletal Musculoskeletal: Denies limited range of motion Integumentary Integumentary: Reports systems reviewed and no addt'l complaints, except as documented Neurologic Neurologic: Reports systems reviewed and no addt'l complaints, except as documented Psychiatric Psychiatric: Reports systems reviewed and no addt'l complaints, except as documented Endocrine Endocrinology: Reports systems reviewed and no addt'l complaints, except as docu mented Hematologic/Lymphatic Hematologic/Lymphatic: Reports systems reviewed and no addt'l complaints, except as documented Allergic/Immunologic Allergic/Immunologic: Reports systems reviewed and no addt'l complaints, except as documented Physical Exam Const alert and oriented x3 General Appearance: cooperative Orientation / Consciousness: awake, oriented to person, oriented to place and oriented to time Exam Limitations: no limitations HEENT normocephalic Head and Scalp: normal to inspection, normocephalic and atraumatic Face and Sinus: normal facial exam Eyes General Eye: normal appearance of both eyes Neck full ROM Chest Chest: symmetrical chest wall rise Resp normal respiratory effort and normal air movement Auscultation: clear to auscultation bilaterally Cardio regular rate, regular rhythm, S1 normal heart sound, S2 normal heart sound, no murmurs, no rub, no gallops and no clicks GI normal to inspection, nondistended, normoactive bowel sounds and non-tender GI Narrative: Dressing dry and intact. Fundus firm 2 below U appearance of the vagina normal Bladder / Kidney Exam: no CVA tenderness Back/Spine normal ROM Extremity normal to inspection and full ROM Skin no rashes or lesions noted Neuro oriented x3, CN's II-XII intact bilaterally and moves all extremities Sensorium / Orientation: awake, alert and oriented to person Motor Exam: clonus absent Deep Tendon Reflexes: Rt Patellar (L4): 2+ and Lt Patellar (L4): 2+ Assessment & Plan (1) S/P primary low transverse : (2) Status post bilateral salpingectomy: PLAN: 1) POD#1 Primary LTCS for Di/Di twin gestation with bilateral salpingectomy. 2) Pain controlled 3) Mata in place, urine output increasing, D/C mata 4) CBC this am 5) Hgb 10.2 to 7.7, asymptomatic. Will give IV iron 100mg once. Repeat CBC in am 6) Possible D/C home tomorrow
--- NOTE | 2021-05-25 08:39 | PCM.DC.SUM ---
Providers Date of Admission: 05/24/21 Primary Care Physician: No Primary Care Phys Reason For Visit: PRIMARY C SECTION Diagnosis Discharge Diagnosis (1) Dichorionic diamniotic twin : Status: Acute Code(s): O30.049 - Twin , dichorionic/diamniotic, unspecified trimester (2) 35 weeks gestation of : Status: Acute Code(s): Z3A.35 - 35 weeks gestation of (3) Uterine contractions: Status: Acute Code(s): O47.9 - False labor, unspecified (4) Obesity affecting : Status: Acute Code(s): O99.210 - Obesity complicating , unspecified trimester Medications at Discharge Home Medications acetaminophen 1,000 mg PO Q6H #0 tab 05/25/21 ibuprofen 600 mg PO Q6H #0 tab 05/25/21 oxycodone 5 mg PO Q6H 7 Days #10 tab 05/25/21 sennosides-docusate sodium [Stool Softener-Stimulant Laxat] 1 - 2 tab PO DAILY #0 tab 05/25/21 Hospital Course Summary of Care Provided Hospital Course: Presented at 35 week gestation, labor, di/di twin gestation, baby B breech presentation. Requesting permanent sterilization. PLTCS via pfannenstiel incision and Bilateral salpingectomy by . Discharge home on POD#3 Weight / BMI Weight Weight: 199 lb 8.293 oz Body Mass Index (BMI) 34.2 ABG / Lab / Microbiology Data Result Diagrams: 05/25/21 05:55 05/24/21 14:05 Laboratory: Laboratory Results - last 24 hr 05/24/21 10:20: Vag Amniotic Fld Detect Negative 05/24/21 10:20: Group B Strep DNA Negative, Specimen Comment Not Reportable 05/24/21 10:45: WBC 10.0, RBC 3.93 L, Hgb 10.6 L, Hct 33.2 L, MCV 84.5, MCH 27.0, MCHC 31.9 L, RDW Std Deviation 49.6 H, RDW Coeff of Greg 16.8 H, Plt Count 226, MPV 12.6 H, Immature Gran % (Auto) 1.200 H, Neut % (Auto) 78.2 H, Lymph % (Auto) 11.9 L, Parmer % (Auto) 6.5, Eos % (Auto) 1.8, Baso % (Auto) 0.4, Absolute Neuts (auto) 7.8 H, Absolute Lymphs (auto) 1.19, Nucleated RBC % 0 05/24/21 10:45: Blood Type O POSITIVE, Antibody Screen NEGATIVE 05/24/21 11:05: Urine Opiates Screen NEGATIVE, Urine Methadone Screen NEGATIVE, Ur Barbiturates Screen NEGATIVE, Ur Phencyclidine Scrn NEGATIVE, Ur Amphetamines Screen NEGATIVE, MDMA (Ecstasy) Screen NEGATIVE, U Benzodiazepines Scrn NEGATIVE, Urine Cocaine Screen NEGATIVE, U Cannabinoids Screen POSITIVE H, Ur Drug Screen Comment 05/24/21 14:05: WBC 10.5, RBC 3.73 L, Hgb 10.2 L, Hct 31.3 L, MCV 83.9, MCH 27.3, MCHC 32.6, RDW Std Deviation 49.1 H, RDW Coeff of Greg 16.7 H, Plt Count 209, MPV 11.8 05/24/21 14:05: Creatinine 0.50 L, Estim Creat Clear Calc 144.65, Est GFR (MDRD) Af Amer 189, Est GFR (MDRD) Non-Af 156, Uric Acid 6.0, AST 12 L, ALT 13 05/24/21 14:15: U Random Total Protein 35.6 H, Urine Creatinine 193.00, Protein/Creatinin Ratio 184 05/25/21 05:55: WBC 8.7, RBC 2.81 L, Hgb 7.7 L, Hct 23.8 L, MCV 84.7, MCH 27.4, MCHC 32.4, RDW Std Deviation 50.0 H, RDW Coeff of Greg 16.6 H, Plt Count 156, MPV 11.6 05/25/21 06:48: POC Glucose 110 H Microbiology: Microbiology 05/24/21 14:20 Nasal Secretion SARS-CoV-2 Antigen (Rapid) - Final Meaningful Use Info Meaningful Use Diagnoses (Choose all that apply): None applicable Discharge Plan Admission Admit Date/Time: 05/24/21 12:35 Primary Reason for Your Visit: Section Attending Provider: Stormy Shay Primary Care Provider: Care Physician,No Primary Instructions Patient Instructions: After a Discharge Orders/Prescriptions Prescriptions: New acetaminophen 500 mg Tablet 1,000 mg PO Q6H Qty: 0 RF: 0 ibuprofen 600 mg Tablet 600 mg PO Q6H Qty: 0 RF: 0 oxycodone 5 mg Tablet 5 mg PO Q6H 7 Days Qty: 10 RF: 0 sennosides-docusate sodium [Stool Softener-Stimulant Laxat] 8.6-50 mg Tablet 1 - 2 tab PO DAILY Qty: 0 RF: 0 Discontinued 1 mg Tablet 1 tab PO DAILY RF: 0 promethazine [promethazine] 25 MG tablet 25 mg PO Q6H PRN PRN (Reason: Nausea) Qty: 15 RF: 0 ondansetron [ondansetron] 4 MG tablet 4 mg PO Q6H PRN PRN (Reason: Nausea) Qty: 15 RF: 0 Referrals / Follow Up: Care Physician,No Primary [Primary Care Provider] - Disposition Disposition (needs filled in before D/C Order can be placed): Home, Self Care
[2021-05-25] MEDS: 0.9% Saline Lock 10 ML Syringe IV (11:16)
[2021-05-25 12:58] VITALS: BP 132/91; PULSE 95; RESP 18; TEMP 36.4; O2SAT 99
[2021-05-25] MEDS: Ibuprofen 600 MG Tablet PO (20:21)
[2021-05-25 20:23] VITALS: BP 120/83; PULSE 97; RESP 16; TEMP 37.2; O2SAT 97
[2021-05-25] MEDS: Hydrocortisone 2.5% Crm 1 APPLIC TOPICAL (22:07)
--- NOTE | 2021-05-25 22:43 | NURSING ---
pt has hive like rash on upper/inner thighs. pt reports that she has been very itchy since delivery, but the rash on her thighs developed when she was feeding infant in [facility]. pt states that she is typically sensitive to new products/laundry detergents. gave pt hydrocortisone cream that is ordered PRN. will update provider and continue to monitor
[2021-05-26] MEDS: Ibuprofen 600 MG Tablet PO ×4 (01:23→20:32)
[2021-05-26] MEDS: Acetaminophen 500 MG Tablet 1000 MG PO ×4 (01:23→20:32)
[2021-05-26 01:25] VITALS: BP 115/76; PULSE 88; RESP 18; TEMP 37.1; O2SAT 100
[2021-05-26] MEDS: DiphenhydrAMINE 25 MG Capsule PO (02:04)
[2021-05-26 05:48] LABS: Hematocrit 24.7 % (37-47); Mean Corp Hgb Conc 32.4 g/dL (32-36); Mean Corpuscular Hgb 27.4 pg (27.0-32.0); Mean Corpuscular Volume 84.6 fL (81-99); Mean Platelet Vol. 11.5 fl (6.2-12.0); Platelet Count 206 K/mm3 (150-450); RBC Distribution Width CV 17.2 % (11.6-14.6); RBC Distribution Width SD 51.5 fl (35.1-43.9); Red Blood Count 2.92 M/mm3 (4.2-5.4)
[2021-05-26 08:36] VITALS: BP 136/94; PULSE 96; RESP 18; TEMP 36.7; O2SAT 95
--- NOTE | 2021-05-26 08:43 | PN.OBGYN_ITS ---
Subjective Subjective Patient seen at bedside. Pain is controlled with PO medications. Ambulating and voiding without difficulty. Denies any headache, vision changes, SOB or CP. Putting twins to breast but will start pumping today for baby B in [facility]. Skin on arms, legs and abdomen is itching and irritated. She has sensitivity to detergen ts and thinks it may be from the sheets. The rash has gotten progressively worse since last night. Took PO Benadryl without relief. Objective Data Objective Data Vital Signs: Vital Signs Temp Pulse Resp BP Pulse Ox 98.0 F 96 18 136/94 H 95 05/26/21 08:36 05/26/21 08:36 05/26/21 08:36 05/26/21 08:36 05/26/21 08:36 Oxygen Delivery Method Room Air Weight: 199 lb 8.293 oz Body Mass Index (BMI) 34.2 Intake & Output: Intake and Output for Last 24 Hours 05/24/21 05/25/21 05/26/21 23:59 23:59 23:59 Intake Total 2244 / 2244 1569.67 / 1569.67 Output Total 350 / 350 2450 / 2450 Balance 1894 / 1894 -880.33 / -880.33 Lab / Micro Data Result Diagrams: 05/26/21 05:40 05/24/21 14:05 Labs: Laboratory Results - last 24 hr 05/26/21 05:40: WBC 10.0, RBC 2.92 L, Hgb 8.0 L, Hct 24.7 L, MCV 84.6, MCH 27.4, MCHC 32.4, RDW Std Deviation 51.5 H, RDW Coeff of Greg 17.2 H, Plt Count 206, MPV 11.5 Micro: Microbiology 05/24/21 14:20 Nasal Secretion SARS-CoV-2 Antigen (Rapid) - Final ROS Eyes Eyes: Denies blurry vision, change in vision or spots in vision ENT HEENT: Denies dizziness or headache(s) Cardiovascular Cardiovascular: Denies abdominal pain, chest pain or dyspnea Respiratory/Chest Respiratory/Chest: Denies cough, dyspnea, shortness of breath at rest or shortness of breath with exertion Gastrointestinal Gastrointestinal: Denies abdominal pain, diarrhea or vomiting Genitourinary Genitourinary: Denies change in urinary stream, difficulty urinating or dysuria Musculoskeletal Musculoskeletal: Reports none Integumentary Integumentary: Reports pruritus and rash Neurologic Neurologic: Denies dizziness, headache(s), memory loss or weakness Physical Exam Narrative Dressing is dry and intact Const alert and no apparent distress General Appearance: cooperative and comfortable Exam Limitations: no limitations HEENT normocephalic Eyes General Eye: normal appearance of both eyes Neck full ROM General: normal visual inspection Chest Chest: symmetrical chest wall rise Resp normal respiratory effort and normal air movement Effort and Inspection: symmetric chest movement Auscultation: clear to auscultation bilaterally Cardio regular rate and regular rhythm GI normal to inspection, nondistended, normoactive bowel sounds Back/Spine normal ROM Extremity full ROM and no calf tenderness General Extremity: normal exam except as noted Skin Skin Narrative: small red raised bumps noted to bilateral arms and legs. Neuro CN's II-XII intact bilaterally Psych mental status grossly normal Assessment & Plan (1) Status post bilateral salpingectomy: (2) S/P primary low transverse : (3) Contact dermatitis: (4) Care and examination of lactating mother: PLAN: PO Day 2 primary C/S- Di/Di twins Pain control support Continue ambulation Start Prednisone PO Taper Claritin 10 mg PO Daily HGB today 8.0 up from 7.7 yesterday Anticipate discharge/hotel status tomorrow Dr. Lowry updated on patient's status and involved in plan of care
[2021-05-26] MEDS: Senna/Docusate Sodium 1 Tablet PO (10:25)
[2021-05-26] MEDS: Enoxaparin 40 MG/0.4 ML Syringe SC (10:25)
[2021-05-26 11:18] VITALS: BP 137/84; PULSE 60; RESP 16; TEMP 36.7; O2SAT 100
[2021-05-26] MEDS: Loratadine 10 MG Tablet PO (14:07)
[2021-05-26] MEDS: MethylPREDNISolone DosePak 4 MG BOX 8 MG PO ×3 (14:15→22:43)
[2021-05-26 16:28] VITALS: BP 124/74; PULSE 94; RESP 16; TEMP 36.8; O2SAT 94
[2021-05-26 20:33] VITALS: BP 126/81; PULSE 90; RESP 18; TEMP 36.9; O2SAT 99
[2021-05-26 23:56] VITALS: BP 123/79; PULSE 84; RESP 16; TEMP 36.6; O2SAT 95
[2021-05-27] MEDS: Ibuprofen 600 MG Tablet PO ×3 (02:20→15:03)
[2021-05-27] MEDS: Acetaminophen 500 MG Tablet 1000 MG PO ×3 (02:20→15:02)
[2021-05-27 04:38] VITALS: BP 128/87; PULSE 81; RESP 16; TEMP 36.6; O2SAT 95
[2021-05-27 08:15] VITALS: BP 136/87; PULSE 83; RESP 16; TEMP 36.3; O2SAT 100
--- NOTE | 2021-05-27 08:20 | PN_ITS ---
Subjective Subjective Patient seen at bedside, doing well. Patient reports good pain control. Mild lochia. Trying to breast pump but having to supplement right now with formula. Baby a which is regular care nursery is having difficulty with feeding. 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 Objective Data Objective Data Vital Signs: Vital Signs Temp Pulse Resp BP Pulse Ox 97.8 F 81 16 128/87 H 95 05/27/21 04:38 05/27/21 04:38 05/27/21 04:38 05/27/21 04:38 05/27/21 04:38 Oxygen Delivery Method Room Air Weight: 90.5 kg Body Mass Index (BMI) 34.2 Intake & Output: Intake and Output for Last 24 Hours 05/25/21 05/26/21 05/27/21 23:59 23:59 23:59 Intake Total 1569.67 / 1569.67 Output Total 2450 / 2450 Balance -880.33 / -880.33 Lab / Micro Data Result Diagrams: 05/26/21 05:40 05/24/21 14:05 Micro: Microbiology 05/24/21 Unknown Genital vaginal Group B Streptococcus Culture - Final Group B Beta Streptococcus is not isolated. 05/24/21 14:20 Nasal Secretion SARS-CoV-2 Antigen (Rapid) - Final Physical Exam Narrative Fundus firm. Dressing dry and intact. Const alert and oriented x3 General Appearance: cooperative HEENT normocephalic GI GI Narrative: Gravid, non tender to palpation. OB / External & Speculum: external exam normal Extremity normal to inspection Skin no rashes or lesions noted Neuro oriented x3 and CN's II-XII intact bilaterally Psych Appearance: grossly normal Assessment & Plan Assessment/Plan (1) Care and examination of lactating mother: (2) Contact dermatitis: QUALIFIERS: Contact dermatitis type: irritant Contact dermatitis trigger: unspecified trigger Qualified Code(s): L24.9 - Irritant contact dermatitis, unspecified cause (3) Status post bilateral salpingectomy: (4) S/P primary low transverse : PLAN: POD# , Doing well Routine care pain mgmt monitor VS ambulation possible dc home today if infant A feeding status improves- otherwise dc to hotel or home tomorrow. order Medrol dose pack for contact dermatitis
--- NOTE | 2021-05-27 08:23 | PCM.DC ---
Discharge Instructions Diet Discharge Diet: No restrictions Activity May resume sexual activity in: 6-8 weeks Lifting Restrictions: 25 Dressing / Incision Call your doctor if your incision/area has: Continuous Slow Oozing, Sudden Increased Bleeding, Increased Pain/ Swelling, Increased Redness, Foul Smelling Discharge and Swelling at the incision site Call your doctor if you observe: Fever of 101 or Higher, Inability to urinate, Using more than 1 pad per hour and Uncontrolled pain Additional Dressing/Incision Instructions:: remove dressing at 7 days post op- if it becomes saturated prior to that time you may remove it. Let soap and water run over incision sites and dab dry. keep incision clean and dry. Follow Up Care Please Follow Up With: Ann Petersen MD When: 1-2 weeks post of incision check and again at 6 weeks post . [phone] Test Results: Test results from this visit will be discussed in further detail at your follow-up appointment, if applicable. Discharge Plan Admission Admit Date/Time: 05/24/21 12:35 Primary Reason for Your Visit: Section Attending Provider: Stormy Shay Primary Care Provider: Care Physician,No Primary Instructions Patient Instructions: After a Discharge Orders/Prescriptions Prescriptions: New acetaminophen 500 mg Tablet 1,000 mg PO Q6H Qty: 0 RF: 0 ibuprofen 600 mg Tablet 600 mg PO Q6H Qty: 0 RF: 0 oxycodone 5 mg Tablet 5 mg PO Q6H 7 Days Qty: 10 RF: 0 sennosides-docusate sodium [Stool Softener-Stimulant Laxat] 8.6-50 mg Tablet 1 - 2 tab PO DAILY Qty: 0 RF: 0 methylprednisolone 4 mg Tablets,Dose Pack 4 mg PO 0800,1200,1700 Qty: 0 RF: 0 Discontinued 1 mg Tablet 1 tab PO DAILY RF: 0 promethazine [promethazine] 25 MG tablet 25 mg PO Q6H PRN PRN (Reason: Nausea) Qty: 15 RF: 0 ondansetron [ondansetron] 4 MG tablet 4 mg PO Q6H PRN PRN (Reason: Nausea) Qty: 15 RF: 0 Referrals / Follow Up: Care Physician,No Primary [Primary Care Provider] - Disposition Disposition (needs filled in before D/C Order can be placed): Home, Self Care
[2021-05-27] MEDS: Senna/Docusate Sodium 1 Tablet PO (08:25)
[2021-05-27] MEDS: Loratadine 10 MG Tablet PO (08:25)
[2021-05-27] MEDS: MethylPREDNISolone DosePak 4 MG BOX 8 MG PO ×3 (08:26→16:41)
[2021-05-27] MEDS: Enoxaparin 40 MG/0.4 ML Syringe SC (08:26)
[2021-05-27 13:35] VITALS: BP 138/84; PULSE 86; RESP 16; TEMP 36.9; O2SAT 97
--- NOTE | 2021-05-27 16:10 | CASEMGMT ---
Social Work Assessment Labor and Delivery Unit Patient Address: [address] [place] [address] (mailing address: [address] [place] [address]) Phone number: [phone] Date of Referral: 05/24/2021; 05/26/2021 Time of Referral: 1133; 0707 Referred By: Dr. Shay; Dr. Fuentes Date of Intervention: 05/27/2021 Time of Intervention: Approximately [id number] Reason for Referral: Maternal history of marijuana and positive upon admission History obtained from: Medical records and mother of baby (MOB) Sue Dunn Household composition: MOB, father of baby (FOB) Sam Rosen live in a home together. Plan to bring twins to this home. MOB denies any issues with housing. Patient's parent/guardian status: TERRY is a 28-year-old female involved with the FOB who is 27 years old for the last 2 years. MOB denies any type of domestic violence or safety concerns in this relationship. Twins are the first children for MOB and FOB together, and the third child for the FOB. FOB has an 8-year-old son Atul, from another relationship. MOB's children include. Baby A - Jim Rosen and Baby B - Guy Rosen, both born on 05/24/2021. Medical History: TERRY is 1, para 0 now 2 after delivering twins. MOB with history of 1 TAB at the age of 16 or 17 and then 1 SAB in April 2020. Twin delivery on 05/24/2021. care for this was at 9 weeks and regular thereafter. delivered at 35 weeks gestation and MOB had a tubal ligation at time of delivery. Baby A weighed 5 pounds 8 ounces at with Apgars 8 and 9. Baby B weighed 5 pounds 7 ounces with 7 and 8. Baby B transferred into the [facility] special care nursery for issues related to prematurity and respiratory distress. Educational Status: TERRY graduated from high school. Denies any issues with reading, writing, or learning comprehension. 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 No reported financial concerns. Supplies: MOB reports to have necessary supplies including crib, bassinet, pack in place, car seats, diapers, wipes and clothing. MOB is providing both breast milk and formula at this time. Childcare/Caregiver(s): MOB and FOB will be primary caregivers. Transportation: MOB denies any issues with transportation. Programs/Agencies Involved: MOB has medical through job and family services and plans to reapply for food card. Has WIC. Accepted information on helping grow but declined a referral. Children Services/Legal Issues: No reported history. Behavioral Health Issues: Mental Health History: MOB denies any history of depression, anxiety, or bipolar disorder. Reports in early 20s around the age of 21-23 was prescribed Adderall for ADHD, and this was suspected in childhood but never enough to medicate. MOB reports she did not like how she felt on the Adderall, feeling could function better without medication. Denies any history of suicidal ideation or attempts. No endorsement of any thoughts of harm to others. Substance Use History: Denies any alcohol usage in , nor any history of substance use issues. Reports history of marijuana usage intermittently prior to . Usage at the beginning of for issues of nausea and problems eating. Reports ceased use and then just recently used a couple of times to deal with nausea and eating issues again. Record indicates last use was last week. Denies any difficulty with being able to stop this substance. Denies history of any other illicit drug use history. Family History: MOB denies mental health history and family. Drug Screens: Maternal drug screen positive on 05/24/2021. Infant's urine drug screen negative, meconium is pending. Family/Social Stressors: Unplanned though accepted. Twin delivery with one baby having to go to special care. Support Systems: MOB reports to have good support from the FOB who has flexibility in his work, to help MOB when needed after discharge. Additional support includes the FOB's mother, MOB's mother, and various family and friends. MOB reports to feel she has both practical and emotional support. Depression/Shaken Baby/Safe Sleeping: MOB educated to shaken baby prevention, safe sleeping, and depression and anxiety including risk factors for such. Also reviewed that fathers are at risk for mood complications. ASSESSMENT: Met with MOB hospital room, introducing to self and social work well. Educated MOB that this chief underwriter is the social work professor for [employer] [facility] [employer] [facility], but also for continuity of care of families who are admitted to the special care nursery provide social work services to that unit as well. MOB pleasant and cooperative during social work visit. Talkative, good eye contact, bright affect. MOB reports to have necessary supplies to care for both babies in adequate support at home going. MOB was attentive to the , baby A, during social work visit. Appeared to be bonding with the baby as evidenced by smiling at the baby, talking to the baby and finger to feed the baby. MOB discussed looking forward to baby B being discharged from the special care so that could hold both of her babies at the same time and get equal attention. Reviewed mood and anxiety disorders and importance of seeking out help and support. MOB expressed understanding. Reviewed the Micaela act and need for notification to children services regarding infant substance exposure in utero. Educated that uncertain whether referral will be open at this time, but that if any of the drug screens comes back positive on baby the case would likely contact. MOB expressed understanding. Offered MOB opportunity to ask questions. Emotional support offered. MOB was accepting of the need for children services. MOB reports she actually had a conversation with the FOB about this possibility, and reports the FOB did not use marijuana. Safe Plan of Care for infant related to substance use: MOB plans to abstain from marijuana at this time. Expresses understanding that breast-feeding and marijuana use do not go [id number]. Should MOB's intentions after change would not use marijuana around the children. PLAN: will discharge to parents when ready for discharge. Provided MOB with mood and anxiety disorder packet, and resource list for both clinic in [facility]. Plan to call children services due to exposure to marijuana in utero. Will monitor for meconium drug screen results. -JON Vernon, DARIEN *This note was generated with [employer] software. It may contain incorrect words, spelling, and punctuation that were not noted in review of the chart prior to signing*
--- NOTE | 2021-05-27 16:11 | CASEMGMT ---
Social Work Labor and Delivery Called [facility] at [phone], as mother of baby reported to be residing with the father of baby in [facility] at [address], [place], [place] ?(rather than mailing address demographics listed of Ever). ? ? Spoke with Feliica in the intake department. ?Referral due to substance exposure to marijuana in utero. Brief maternal and infant histories provided. ??MOB is aware of referral being made. ? ? Children services asks to be called if meconium is positive. ?Not anticipating a case to be opened at this time. ? ? Social work remains available to assist if any further needs arise prior to discharge. ? -AGUSTIN Vernon, HAT BLOCKER?
[2021-05-27 16:37] VITALS: BP 135/80; PULSE 90; RESP 16; TEMP 36.4; O2SAT 99
--- NOTE | 2021-05-28 07:21 | PCM.DC.BLA ---
Discharge Summary Date of Admission: 05/24/21 Date of Discharge: 05/27/21 Summary: Patient was admitted to [facility] on May 24, 2021 with di-di twins 35+ weeks gestation in labor. Patient desired a primary section with a salpingectomy. Patient underwent a low transverse section delivery of twins by Dr. Stormy Shay as well as bilateral salpingectomy for sterilization. Patient had an uncomplicated postoperative course. She had acute on chronic anemia and was given IV iron therapy. Patient was discharged home on postoperative day #3 in stable condition. Meaningful Use Info Meaningful Use Diagnoses (Choose all that apply): None applicable Discharge Plan Admission Admit Date/Time: 05/24/21 12:35 Primary Reason for Your Visit: Section Attending Provider: Stormy Shay Primary Care Provider: Care Physician,Donna Primary Instructions Patient Instructions: After a Discharge Orders/Prescriptions Prescriptions: New acetaminophen 500 mg Tablet 1,000 mg PO Q6H Qty: 0 RF: 0 ibuprofen 600 mg Tablet 600 mg PO Q6H Qty: 0 RF: 0 oxycodone 5 mg Tablet 5 mg PO Q6H 7 Days Qty: 10 RF: 0 sennosides-docusate sodium [Stool Softener-Stimulant Laxat] 8.6-50 mg Tablet 1 - 2 tab PO DAILY Qty: 0 RF: 0 methylprednisolone 4 mg Tablets,Dose Pack 4 mg PO 0800,1200,1700 Qty: 0 RF: 0 Discontinued 1 mg Tablet 1 tab PO DAILY RF: 0 promethazine [promethazine] 25 MG tablet 25 mg PO Q6H PRN PRN (Reason: Nausea) Qty: 15 RF: 0 ondansetron [ondansetron] 4 MG tablet 4 mg PO Q6H PRN PRN (Reason: Nausea) Qty: 15 RF: 0 Referrals / Follow Up: Care Physician,No Primary [Primary Care Provider] - Disposition Disposition (needs filled in before D/C Order can be placed): Home, Self Care
== END 2021-05-27 19:40 | disposition home or self-care (01) | DRG 539 ==
LOC: WPOUT 12:40 → WP 12:40
PROVIDERS: Advanced Practice Midwife; Admitting Provider Obstetrics & Gynecology; Visit Provider Obstetrics & Gynecology
DX: O60.14X2 Preterm labor third trimester with preterm delivery third trimester, fetus 2 (principal); D62 Acute posthemorrhagic anemia; L24.0 Irritant contact dermatitis due to detergents; O30.043 Twin pregnancy, dichorionic/diamniotic, third trimester; Z37.2 Twins, both liveborn; O32.1XX2 Maternal care for breech presentation, fetus 2; Z30.2 Encounter for sterilization; Z3A.35 35 weeks gestation of pregnancy; O99.72 Diseases of the skin and subcutaneous tissue complicating childbirth; Z87.891 Personal history of nicotine dependence; Z90.79 Acquired absence of other genital organ(s); O99.73 Diseases of the skin and subcutaneous tissue complicating the puerperium; O99.214 Obesity complicating childbirth; E66.9 Obesity, unspecified; O90.81 Anemia of the puerperium
CPT/HCPCS: 59025; 59050; 80307; 82565; 82570; 82962; 84112; 84156; 84450; 84460; 84550; 85025; 85027; 86850; 86900; 86901; 87081; 87426; 87653; 88302; 99218; J1756; J7120; A4216; G0378; J2405